=== PATIENT | female | born 1975 | race Two or more races ===

== ENCOUNTER 2021-06-28 11:48 | Emergency (ER) | payer OTHER ==
[~2021-06-28] VITALS: Ht 149.9 cm; Wt 88.0 kg
[2021-06-28] MEDS ORDERED: FOLIC ACID0.8 M1 PO (12:17)
== END 2021-06-28 14:37 | disposition home or self-care (01) ==
LOC: ER 11:48
DX: O20.0 Threatened abortion (principal); Z34.81 Encounter for supervision of other normal pregnancy, first trimester

== ENCOUNTER 2022-03-24 11:48 | Emergency (ER) | payer OTHER ==
[~2022-03-24] VITALS: Ht 152.4 cm; Wt 72.6 kg
[~2022-03-24 11:48] MED LIST: FOLIC ACID0.8 M1 PO
== END 2022-03-24 15:10 | disposition home or self-care (01) ==
LOC: ER 11:48
DX: J37.0 Chronic laryngitis (principal); J04.0 Acute laryngitis; R53.81 Other malaise; H92.09 Otalgia, unspecified ear; Z20.822 Contact with and (suspected) exposure to COVID-19

== ENCOUNTER 2023-02-02 21:27 | Emergency (ER) | payer OTHER ==
[~2023-02-02] VITALS: Ht 154.9 cm; Wt 90.7 kg
[2023-02-03] MEDS ORDERED: KETO10TA2 PO (01:56)
== END 2023-02-03 02:03 ==
LOC: ER 21:27
DX: T16.2XXA Foreign body in left ear, initial encounter (principal)